=== PATIENT | female | born 1960 ===

== ENCOUNTER 2018-03-10 19:37 | Inpatient (IN) | payer MEDICAID ==
[2018-03-10 19:37] VITALS: BMI 28.3
[2018-03-10 20:32] LABS: BASO # 0.1 K/uL (0.0-0.2); BASO % 0.9 % (0.0-2.0); EOS # 0.5 K/uL (0.0-0.7); EOS % 4.4 % (0.0-4.0); HEMOGLOBIN 13.9 g/dL (12.0-16.0); LYMPH # 2.4 K/uL (1.0-4.3); LYMPH % 23.1 % (20.0-40.0); MEAN CELL VOLUME 87.4 fl (81.0-99.0); MEAN CORPUSCULAR HGB CONC 33.1 g/dL (33.0-37.0); MEAN PLATELET VOLUME 9.2 fl (7.2-11.7); MONO # 0.9 K/uL (0.0-0.8); MONO % 8.6 % (0.0-10.0); NEUT # 6.6 K/uL (1.8-7.0); RBC 4.82 Mil/uL (3.80-5.20); RED CELL DISTRIBUTION WIDTH 13.6 % (11.5-14.5); WHITE BLOOD COUNT 10.4 K/uL (4.8-10.8)
[2018-03-10 20:39] LABS: PROTHROMBIN TIME 12.5 Seconds (9.8-13.1)
[2018-03-10 20:40] LABS: INR 1.1 (0.9-1.2); PARTIAL THROMBOPLASTIN TIME 31.2 Seconds (25.6-37.1)
[2018-03-10 20:58] LABS: BARBITURATES, UR NEGATIVE (NEGATIVE); BENZODIAZEPINES, UR NEGATIVE (NEGATIVE); OPIATES, UR NEGATIVE (NEGATIVE); PHENCYCLIDINE, UR NEGATIVE (NEGATIVE)
[2018-03-10 21:09] LABS: SQUAMOUS EPITHIAL 2 /hpf (0-5); URINE BACTERIA MOD (<OCC); URINE BILIRUBIN NEGATIVE (NEGATIVE); URINE BLOOD SMALL (NEGATIVE); URINE CLARITY SLIGHTY-CLOUDY (Clear); URINE COLOR STRAW (YELLOW); URINE GLUCOSE (UA) NEG (Normal); URINE LEUKOCYTE ESTERASE NEG Leu/uL (Negative); URINE PROTEIN NEGATIVE (NEGATIVE); URINE UROBILINOGEN 0.2-1.0 mg/dL (0.2-1.0)
[2018-03-10 21:22] LABS: ALB/GLOB RATIO 1.1 (1.0-2.1); ALBUMIN 4.3 g/dL (3.5-5.0); ALT/SGPT 25 U/L (9-52); AST/SGOT 27 U/L (14-36); BLOOD UREA NITROGEN 13 mg/dl (7-17); CALCIUM 9.5 mg/dL (8.4-10.2); GFR AFRICAN-AMERICAN > 60; GFR NON-AFRICAN AMERICAN 57
[2018-03-10] MEDS ORDERED: Enoxaparin 80 mg Syringe SC STA (22:24)
--- NOTE | 2018-03-10 22:42 | ED PDOC ---
HPI: Chest Pain Time Seen by Provider: 03/10/18 19:47 Chief Complaint (Nursing): Chest Pain Chief Complaint (Provider): Chest Pain History Per: Patient History/Exam Limitations: no limitations Onset/Duration Of Symptoms: Hrs (1) Current Symptoms Are (Timing): Still Present Associated Symptoms: denies: Nausea, Diaphoresis Additional Complaint(s): 57 y/o female with a history of HTN presents to the ED for chest pain. Patient states symptoms began 1 hour prior to ED arrival. She is also complaining of palpitations, SOB, headache, and dizziness. Patient reports she has had episodes like this in the past but hasn't experienced them this long before. Denies any nausea, vomiting, or diaphoresis. PMD: none provided Past Medical History Reviewed: Historical Data, Nursing Documentation, Vital Signs Vital Signs: Last Vital Signs Temp 98 F 03/11/18 01:00 Pulse 124 H 03/11/18 02:47 Resp 16 03/11/18 01:00 BP 112/78 03/11/18 01:00 Pulse Ox 98 03/11/18 02:47 - Medical History PMH: HTN Denies: Chronic Kidney Disease - Surgical History Surgical History: Appendectomy - Family History Family History: States: No Known Family Hx - Social History Current smoker - smoking cessation education provided: No Ex-Smoker (has not smoked in the last 12 months): No Alcohol: None Drugs: Denies - Home Medications Home Medications: Ambulatory Orders Medication Instructions Recorded Lisinopril/Hydrochlorothiazide 1 tab PO DAILY 03/10/18 [Lisinopril-Hctz 20-25 mg Tab] - Allergies Allergies/Adverse Reactions: Allergies Allergy/AdvReac Type Severity Reaction Status Date / Time No Known Allergies Allergy Verified 12/11/15 12:17 Review of Systems ROS Statement: Except As Marked, All Systems Reviewed And Found Negative Constitutional: Negative for: Sweats Cardiovascular: Positive for: Chest Pain, Palpitations Respiratory: Positive for: Shortness of Breath Gastrointestinal: Negative for: Nausea, Vomiting Neurological: Positive for: Headache, Dizziness Physical Exam - Reviewed Nursing Documentation Reviewed: Yes Vital Signs Reviewed: Yes - Physical Exam Appears: Positive for: Non-toxic, No Acute Distress, Uncomfortable Head Exam: Positive for: ATRAUMATIC, NORMOCEPHALIC Skin: Positive for: Normal Color, Warm, Dry Eye Exam: Positive for: EOMI, Normal appearance, PERRL Neck: Positive for: Normal, Painless ROM, Supple Cardiovascular/Chest: Positive for: Tachycardia, Irregularly Irregular. Negative for: Regular Rate, Rhythm Respiratory: Positive for: Normal Breath Sounds. Negative for: Respiratory Distress Gastrointestinal/Abdominal: Positive for: Normal Exam, Soft. Negative for: Tenderness Back: Positive for: Normal Inspection Extremity: Positive for: Normal ROM Neurologic/Psych: Positive for: Alert, Oriented (x3) - Laboratory Results Result Diagrams: 03/10/18 20:26 03/10/18 21:02 - ECG ECG: Positive for: Interpreted By Me, Viewed By Me Interpretation Of ECG: EKG taken at 19:43; Rapid ventricular rate, RVR Rate: 124 O2 Sat by Pulse Oximetry: 98 (RA) Pulse Ox Interpretation: Normal - Critical Care Total Time (In Min): 30 Medical Decision Making Medical Decision Making: Time: 19:38 Impression: 57 y/o female with new onset atrial fibrillation with rapid ventricular response Initial Plan: * EKG x2 * CMP x2 * Drug Screen * TSH * Troponin I Stat x2 * CBC * PTT * Prothrombin Time * Chest X-Ray * IV Fluids * Cardizem 20 mg IVP once 20 mg IV push of Cardizem administered with successful control of HR. Patient remains in A Fib with controlled Rate (80bpm). Patient reports symptoms have resolved. Chest X-ray shows NAD Labs reviewed show no clinically significant abnormalities. Patient will be admitted for new onset of atrial fibrillation with rapid ventricular response. Case d/w Dr. Leong (medicine staff sonographer) for admission Scribe Attestation: Documented by Sandy Lux acting as a scribe Jacob Alaniz MD. MD Whelan Attestation: All medical record entries made by the Scribe were at my direction and personally dictated by me. I have reviewed the chart and agree that the record accurately reflects my personal performance of the history, physical exam, medical decision making, and the department course for this patient. I have also personally directed, reviewed, and agree with the discharge instructions and disposition. Disposition - Clinical Impression Clinical Impression: Atrial fibrillation with rapid ventricular response - Disposition Disposition Time: 21:30 Condition: FAIR
--- NOTE | 2018-03-11 05:09 | CP.PCM.PCO ---
Physician Communication Note - Physician Communication Note Physician Communication Note: held cardizem drip as patient converted to NSR and is asymptomatic
[2018-03-11] MEDS ORDERED: Pneumococcal 23-Valent Vaccine IM ONE (06:16)
[2018-03-11 06:29] LABS: HEMOGLOBIN 13.7 g/dL (12.0-16.0); MEAN CELL VOLUME 86.8 fl (81.0-99.0); MEAN CORPUSCULAR HEMOGLOBIN 29.3 pg (27.0-31.0); MEAN CORPUSCULAR HGB CONC 33.7 g/dL (33.0-37.0); RBC 4.67 Mil/uL (3.80-5.20); RED CELL DISTRIBUTION WIDTH 13.9 % (11.5-14.5); WHITE BLOOD COUNT 8.5 K/uL (4.8-10.8)
--- NOTE | 2018-03-11 07:35 | CP.PCM.HP ---
History of Present Illness - History of Present Illness History of Present Illness: CC: chest pain HPI: 57 y/o woman w/ pmh of HTN presented to the ED w/ chest pain. Patient states symptoms began 1 hour prior to ED arrival. Patient also complaining of associated palpitations, SOB, headache, and dizziness. Patient reports similar episodes in the past but hasn't experienced them this long before. Patient denies abdominal pain, nausea, vomiting, fever, or diaphoresis. PMD: none provided PMH: HTN meds: see med list allergies: NKDA PSH: appendectomy Fam: denies SOC: denies smoking, alcohol, and drugs ROS: 12 points assessed and negative unless otherwise reported in HPI Present on Admission - Present on Admission Any Indicators Present on Admission: No History of DVT/PE: No History of Uncontrolled Diabetes: No Urinary Catheter: No Decubitus Ulcer Present: No Review of Systems - Review of Systems All systems: reviewed and no additional remarkable complaints except - Constitutional Constitutional: absent: Chills, Fever, Headache - EENT Eyes: absent: Change in Vision - Cardiovascular Cardiovascular: As Per HPI, Chest Pain, Lightheadedness, Palpitations - Respiratory Respiratory: As Per HPI, Dyspnea - Gastrointestinal Gastrointestinal: absent: Abdominal Pain, Diarrhea, Nausea, Vomiting - Genitourinary Genitourinary: absent: Dysuria - Integumentary Integumentary: absent: Rash Past Patient History - Past Medical History & Family History Past Medical History?: Yes - Past Social History Alcohol: None Drugs: Denies - CARDIAC Hx Hypertension: Yes - PULMONARY Hx Respiratory Disorders: No - NEUROLOGICAL Hx Neurological Disorder: Yes Hx Vertigo: Yes - HEENT Hx HEENT Problems: No - RENAL Hx Chronic Kidney Disease: No - ENDOCRINE/METABOLIC Hx Endocrine Disorders: No - HEMATOLOGICAL/ONCOLOGICAL Hx Blood Disorders: No - INTEGUMENTARY Hx Dermatological Problems: No - MUSCULOSKELETAL/RHEUMATOLOGICAL Hx Musculoskeletal Disorders: No Hx Falls: No - GASTROINTESTINAL Hx Gastrointestinal Disorders: No - GENITOURINARY/GYNECOLOGICAL Hx Genitourinary Disorders: No - PSYCHIATRIC Hx Psychophysiologic Disorder: No Hx Substance Use: No - SURGICAL HISTORY Hx Appendectomy: Yes - ANESTHESIA Hx Anesthesia: Yes Hx Anesthesia Reactions: No Hx Malignant Hyperthermia: No Has any member of the family had a problem w/ anesthesia?: No Meds Allergies/Adverse Reactions: Allergies Allergy/AdvReac Type Severity Reaction Status Date / Time No Known Allergies Allergy Verified 12/11/15 12:17 Physical Exam - Constitutional Appears: Non-toxic, No Acute Distress - Head Exam Head Exam: ATRAUMATIC, NORMAL INSPECTION, NORMOCEPHALIC - Eye Exam Eye Exam: Normal appearance - ENT Exam ENT Exam: Mucous Membranes Moist - Neck Exam Neck exam: Positive for: Full Rom. Negative for: Tenderness - Respiratory Exam Respiratory Exam: Clear to Auscultation Bilateral. absent: Accessory Muscle Use , Decreased Breath Sounds, Rales, Rhonchi, Wheezes, Respiratory Distress - Cardiovascular Exam Cardiovascular Exam: REGULAR RHYTHM, RRR. absent: Tachycardia - GI/Abdominal Exam GI & Abdominal Exam: Normal Bowel Sounds, Soft. absent: Distended, Tenderness - Extremities Exam Extremities exam: Positive for: normal inspection. Negative for: calf tenderness - Neurological Exam Neurological exam: Alert, CN II-XII Intact, Oriented x3 - Skin Skin Exam: Dry, Intact, Normal Color, Warm Results - Vital Signs Recent Vital Signs: Last Vital Signs Temp 97.8 F 03/11/18 04:51 Pulse 66 03/11/18 04:51 Resp 16 03/11/18 04:51 BP 107/71 03/11/18 04:51 Pulse Ox 99 03/11/18 04:51 - Labs Result Diagrams: 03/11/18 05:40 03/10/18 21:02 Labs: Laboratory Results - last 24 hr 03/10/18 03/10/18 03/10/18 20:26 20:26 20:26 WBC 10.4 RBC 4.82 Hgb 13.9 Hct 42.1 MCV 87.4 MCH 29.0 MCHC 33.1 RDW 13.6 Plt Count 237 MPV 9.2 Neut % (Auto) 63.0 Lymph % (Auto) 23.1 [place] % (Auto) 8.6 Eos % (Auto) 4.4 H Baso % (Auto) 0.9 Neut # (Auto) 6.6 Lymph # (Auto) 2.4 [place] # (Auto) 0.9 H Eos # (Auto) 0.5 Baso # (Auto) 0.1 PT 12.5 INR 1.1 APTT 31.2 Sodium Potassium Chloride Carbon Dioxide Anion Gap BUN Creatinine Est GFR ( Amer) Est GFR (Non-Af Amer) Random Glucose Calcium Total Bilirubin AST ALT Alkaline Phosphatase Troponin I Total Protein Albumin Globulin Albumin/Globulin Ratio Vitamin B12 TSH 3rd Generation Urine Color Urine Clarity Urine pH Ur Specific [place] Urine Protein Urine Glucose (UA) Urine Ketones Urine Blood Urine Nitrate Urine Bilirubin Urine Urobilinogen Ur Leukocyte Esterase Urine RBC (Auto) Urine Microscopic WBC Ur Squamous Epith Cells Urine Bacteria Urine Opiates Screen Negative Urine Methadone Screen Negative Ur Barbiturates Screen Negative Ur Phencyclidine Scrn Negative Ur Amphetamines Screen Negative U Benzodiazepines Scrn Negative U Oth Cocaine Metabols Negative U Cannabinoids Screen Negative 03/10/18 03/10/18 03/10/18 21:02 21:02 22:00 WBC RBC Hgb Hct MCV MCH MCHC RDW Plt Count MPV Neut % (Auto) Lymph % (Auto) [place] % (Auto) Eos % (Auto) Baso % (Auto) Neut # (Auto) Lymph # (Auto) [place] # (Auto) Eos # (Auto) Baso # (Auto) PT INR APTT Sodium 141 Potassium 3.7 Chloride 102 Carbon Dioxide 28 Anion Gap 15 BUN 13 Creatinine 1.0 Est GFR ( Amer) > 60 Est GFR (Non-Af Amer) 57 Random Glucose 118 H Calcium 9.5 Total Bilirubin 0.3 AST 27 ALT 25 Alkaline Phosphatase 112 Troponin I < 0.0120 Total Protein 8.2 Albumin 4.3 Globulin 3.9 Albumin/Globulin Ratio 1.1 Vitamin B12 TSH 3rd Generation 3.26 Urine Color Straw Urine Clarity Slighty-cloudy Urine pH 7.0 Ur Specific [place] 1.005 Urine Protein Negative Urine Glucose (UA) Neg Urine Ketones Negative Urine Blood Small Urine Nitrate Negative Urine Bilirubin Negative Urine Urobilinogen 0.2-1.0 Ur Leukocyte Esterase Neg Urine RBC (Auto) 5 H Urine Microscopic WBC < 1 Ur Squamous Epith Cells 2 Urine Bacteria Mod H Urine Opiates Screen Urine Methadone Screen Ur Barbiturates Screen Ur Phencyclidine Scrn Ur Amphetamines Screen U Benzodiazepines Scrn U Oth Cocaine Metabols U Cannabinoids Screen 03/11/18 03/11/18 05:40 05:40 WBC 8.5 RBC 4.67 Hgb 13.7 Hct 40.6 MCV 86.8 MCH 29.3 MCHC 33.7 RDW 13.9 Plt Count 241 MPV Neut % (Auto) Lymph % (Auto) [place] % (Auto) Eos % (Auto) Baso % (Auto) Neut # (Auto) Lymph # (Auto) [place] # (Auto) Eos # (Auto) Baso # (Auto) PT INR APTT Sodium Potassium Chloride Carbon Dioxide Anion Gap BUN Creatinine Est GFR ( Amer) Est GFR (Non-Af Amer) Random Glucose Calcium Total Bilirubin AST ALT Alkaline Phosphatase Troponin I < 0.0120 Total Protein Albumin Globulin Albumin/Globulin Ratio Vitamin B12 668 TSH 3rd Generation Urine Color Urine Clarity Urine pH Ur Specific [place] Urine Protein Urine Glucose (UA) Urine Ketones Urine Blood Urine Nitrate Urine Bilirubin Urine Urobilinogen Ur Leukocyte Esterase Urine RBC (Auto) Urine Microscopic WBC Ur Squamous Epith Cells Urine Bacteria Urine Opiates Screen Urine Methadone Screen Ur Barbiturates Screen Ur Phencyclidine Scrn Ur Amphetamines Screen U Benzodiazepines Scrn U Oth Cocaine Metabols U Cannabinoids Screen Assessment & Plan (1) Atrial fibrillation with rapid ventricular response Status: Acute (2) HTN (hypertension) Status: Chronic - Assessment and Plan (Free Text) Plan: afebrile, non-tachycardic, normotensive cardiology consult ordered troponin x2 negative converted to sinus rhythm EKG: atrial fibrillation f/u CMP, TSH, T3, T4, lipid panel, vit B12, troponin prophylactic measures: DVT lovenox 70 mg SC Q12h monitor for acute changes
[2018-03-11 07:43] LABS: ALB/GLOB RATIO 1.1 (1.0-2.1); ALBUMIN 3.9 g/dL (3.5-5.0); ALT/SGPT 29 U/L (9-52); AST/SGOT 28 U/L (14-36); BLOOD UREA NITROGEN 14 mg/dl (7-17); CALCIUM 9.2 mg/dL (8.4-10.2); GFR AFRICAN-AMERICAN > 60; GFR NON-AFRICAN AMERICAN 51; HDL CHOLESTEROL 56 MG/DL (30-70); LDL CHOLESTEROL 64 mg/dL (0-129); T3 1.24 nmol/L (1.49-2.60); T4 10.3 ug/dl (5.5-11.0)
[2018-03-11] MEDS: Enoxaparin 80 mg Syringe SC SCH ×2 (08:15→22:13)
[2018-03-11] MEDS ORDERED: Patient's Own Med (Lisinopril/Hydrochlorothiazide [Lisinopril-Hctz 20-25 Mg Tab] 1 TAB) PO SCH (09:00)
[2018-03-11] MEDS ORDERED: Enoxaparin 60 mg Syringe SC SCH (09:00)
--- NOTE | 2018-03-11 09:39 | RAD ---
HISTORY: chest pain COMPARISON: 12/11/2015 FINDINGS: LUNGS: No active pulmonary disease. PLEURA: No significant pleural effusion identified, no pneumothorax apparent. CARDIOVASCULAR: Top-normal heart size OSSEOUS STRUCTURES: No significant abnormalities. VISUALIZED UPPER ABDOMEN: Right upper quadrant pole post cholecystectomy clips inferred OTHER FINDINGS: None. IMPRESSION: No active disease.
--- NOTE | 2018-03-11 11:21 | CP.PCM.CON ---
History of Present Illness - History of Present Illness History of Present Illness: Consultation for afib HPI:57 yo F with PMH of HTN who presented to the ED last night with c/ o chest discomfort and palpitations. EKG in the ED revealed new onset AFib at 124. She was subsequently given 1x Cardizem 20mg IVP, resulting in rate control at 80. Troponins were negative. ECHO revealed normal LV wall thickness, EF of 55 %. Today, she has remained rate controlled in the 80s. Patient was hypotensive in 90s/60s. Currently, she denies any chest pain, palpitations, SOB, n/v, diaphoresis. She denies any similar episodes in the past, or ever being worked up for arrhythmia. No other complaints are noted at this time. Review of Systems - Constitutional Constitutional: As Per HPI - EENT Eyes: As Per HPI - Cardiovascular Cardiovascular: Dyspnea. absent: Chest Pain, Chest Pain at Rest, Chest Pain with Activity, Diaphoresis, Palpitations, Syncope - Respiratory Respiratory: absent: Cough, Dyspnea, Wheezing - Neurological Neurological: Headaches Past Patient History - Past Medical History & Family History Past Medical History?: Yes - Past Social History Alcohol: None Drugs: Denies - CARDIAC Hx Hypertension: Yes - PULMONARY Hx Respiratory Disorders: No - NEUROLOGICAL Hx Neurological Disorder: Yes Hx Vertigo: Yes - HEENT Hx HEENT Problems: No - RENAL Hx Chronic Kidney Disease: No - ENDOCRINE/METABOLIC Hx Endocrine Disorders: No - HEMATOLOGICAL/ONCOLOGICAL Hx Blood Disorders: No - INTEGUMENTARY Hx Dermatological Problems: No - MUSCULOSKELETAL/RHEUMATOLOGICAL Hx Musculoskeletal Disorders: No Hx Falls: No - GASTROINTESTINAL Hx Gastrointestinal Disorders: No - GENITOURINARY/GYNECOLOGICAL Hx Genitourinary Disorders: No - PSYCHIATRIC Hx Psychophysiologic Disorder: No Hx Substance Use: No - SURGICAL HISTORY Hx Appendectomy: Yes - ANESTHESIA Hx Anesthesia: Yes Hx Anesthesia Reactions: No Hx Malignant Hyperthermia: No Has any member of the family had a problem w/ anesthesia?: No Meds Allergies/Adverse Reactions: Allergies Allergy/AdvReac Type Severity Reaction Status Date / Time No Known Allergies Allergy Verified 12/11/15 12:17 - Medications Medications: Current Medications Diltiazem HCl (Cardizem) 30 mg PO DAILY [facility] Enoxaparin Sodium (Lovenox) 70 mg SC Q12 ADELINE PRN Reason: Protocol Last Admin: 03/11/18 08:15 Dose: 70 mg Hydrochlorothiazide (Hydrodiuril) 25 mg PO DAILY [facility] Last Admin: 03/11/18 08:16 Dose: Not Given Diltiazem HCl 125 mg/ Sodium (Chloride) 125 mls @ 5 mls/hr IV .Q24H ONE; 5 MG/ HR PRN Reason: Protocol Stop: 03/11/18 19:59 Last Admin: 03/10/18 21:28 Dose: 5 mls/hr Lisinopril (Zestril) 20 mg PO DAILY [facility] Last Admin: 03/11/18 08:16 Dose: Not Given Physical Exam - Constitutional Appears: Well, Non-toxic, No Acute Distress - Head Exam Head Exam: ATRAUMATIC, NORMOCEPHALIC - Respiratory Exam Respiratory Exam: Clear to Auscultation Bilateral, NORMAL BREATHING PATTERN. absent: Chest Wall Tenderness, Decreased Breath Sounds, Wheezes, Respiratory Distress - Cardiovascular Exam Cardiovascular Exam: REGULAR RHYTHM, +S1, +S2 Results - Vital Signs Recent Vital Signs: Last Vital Signs Temp 97.8 F 03/11/18 07:57 Pulse 64 03/11/18 08:16 Resp 18 03/11/18 07:57 BP 93/60 L 03/11/18 08:16 Pulse Ox 98 03/11/18 07:57 - Labs Result Diagrams: 03/11/18 05:40 03/11/18 05:40 Labs: Laboratory Results - last 24 hr 03/10/18 03/10/18 03/10/18 20:26 20:26 20:26 WBC 10.4 RBC 4.82 Hgb 13.9 Hct 42.1 MCV 87.4 MCH 29.0 MCHC 33.1 RDW 13.6 Plt Count 237 MPV 9.2 Neut % (Auto) 63.0 Lymph % (Auto) 23.1 [place] % (Auto) 8.6 Eos % (Auto) 4.4 H Baso % (Auto) 0.9 Neut # (Auto) 6.6 Lymph # (Auto) 2.4 [place] # (Auto) 0.9 H Eos # (Auto) 0.5 Baso # (Auto) 0.1 PT 12.5 INR 1.1 APTT 31.2 Sodium Potassium Chloride Carbon Dioxide Anion Gap BUN Creatinine Est GFR ( Amer) Est GFR (Non-Af Amer) Random Glucose Calcium Total Bilirubin AST ALT Alkaline Phosphatase Troponin I Total Protein Albumin Globulin Albumin/Globulin Ratio Triglycerides Cholesterol LDL Cholesterol Direct HDL Cholesterol Vitamin B12 Thyroxine (T4) Total T3 TSH 3rd Generation Urine Color Urine Clarity Urine pH Ur Specific [place] Urine Protein Urine Glucose (UA) Urine Ketones Urine Blood Urine Nitrate Urine Bilirubin Urine Urobilinogen Ur Leukocyte Esterase Urine RBC (Auto) Urine Microscopic WBC Ur Squamous Epith Cells Urine Bacteria Urine Opiates Screen Negative Urine Methadone Screen Negative Ur Barbiturates Screen Negative Ur Phencyclidine Scrn Negative Ur Amphetamines Screen Negative U Benzodiazepines Scrn Negative U Oth Cocaine Metabols Negative U Cannabinoids Screen Negative 03/10/18 03/10/18 03/10/18 21:02 21:02 22:00 WBC RBC Hgb Hct MCV MCH MCHC RDW Plt Count MPV Neut % (Auto) Lymph % (Auto) [place] % (Auto) Eos % (Auto) Baso % (Auto) Neut # (Auto) Lymph # (Auto) [place] # (Auto) Eos # (Auto) Baso # (Auto) PT INR APTT Sodium 141 Potassium 3.7 Chloride 102 Carbon Dioxide 28 Anion Gap 15 BUN 13 Creatinine 1.0 Est GFR ( Amer) > 60 Est GFR (Non-Af Amer) 57 Random Glucose 118 H Calcium 9.5 Total Bilirubin 0.3 AST 27 ALT 25 Alkaline Phosphatase 112 Troponin I < 0.0120 Total Protein 8.2 Albumin 4.3 Globulin 3.9 Albumin/Globulin Ratio 1.1 Triglycerides Cholesterol LDL Cholesterol Direct HDL Cholesterol Vitamin B12 Thyroxine (T4) Total T3 TSH 3rd Generation 3.26 Urine Color Straw Urine Clarity Slighty-cloudy Urine pH 7.0 Ur Specific [place] 1.005 Urine Protein Negative Urine Glucose (UA) Neg Urine Ketones Negative Urine Blood Small Urine Nitrate Negative Urine Bilirubin Negative Urine Urobilinogen 0.2-1.0 Ur Leukocyte Esterase Neg Urine RBC (Auto) 5 H Urine Microscopic WBC < 1 Ur Squamous Epith Cells 2 Urine Bacteria Mod H Urine Opiates Screen Urine Methadone Screen Ur Barbiturates Screen Ur Phencyclidine Scrn Ur Amphetamines Screen U Benzodiazepines Scrn U Oth Cocaine Metabols U Cannabinoids Screen 03/11/18 03/11/18 05:40 05:40 WBC 8.5 RBC 4.67 Hgb 13.7 Hct 40.6 MCV 86.8 MCH 29.3 MCHC 33.7 RDW 13.9 Plt Count 241 MPV Neut % (Auto) Lymph % (Auto) [place] % (Auto) Eos % (Auto) Baso % (Auto) Neut # (Auto) Lymph # (Auto) [place] # (Auto) Eos # (Auto) Baso # (Auto) PT INR APTT Sodium 140 Potassium 4.2 Chloride 103 Carbon Dioxide 28 Anion Gap 13 BUN 14 Creatinine 1.1 Est GFR ( Amer) > 60 Est GFR (Non-Af Amer) 51 Random Glucose 139 H Calcium 9.2 Total Bilirubin 0.6 AST 28 ALT 29 Alkaline Phosphatase 121 Troponin I < 0.0120 Total Protein 7.6 Albumin 3.9 Globulin 3.7 Albumin/Globulin Ratio 1.1 Triglycerides 117 D Cholesterol 158 LDL Cholesterol Direct 64 HDL Cholesterol 56 Vitamin B12 668 Thyroxine (T4) 10.3 Total T3 1.24 L TSH 3rd Generation 2.68 Urine Color Urine Clarity Urine pH Ur Specific [place] Urine Protein Urine Glucose (UA) Urine Ketones Urine Blood Urine Nitrate Urine Bilirubin Urine Urobilinogen Ur Leukocyte Esterase Urine RBC (Auto) Urine Microscopic WBC Ur Squamous Epith Cells Urine Bacteria Urine Opiates Screen Urine Methadone Screen Ur Barbiturates Screen Ur Phencyclidine Scrn Ur Amphetamines Screen U Benzodiazepines Scrn U Oth Cocaine Metabols U Cannabinoids Screen Assessment & Plan (1) Atrial fibrillation with rapid ventricular response Status: Acute Comment: 1. Pharmacologic stress test. 2. D-dimer. 3. ABG (2) HTN (hypertension) Status: Chronic (3) Cough Status: Acute
--- NOTE | 2018-03-11 14:15 | CARD ---
APPROVED REPORT EXAM: Two-dimensional and M-mode echocardiogram with Doppler and color Doppler. Other Information Quality : GoodRhythm : NSR INDICATION Dyspnea Atrial Fibrillation 2D DIMENSIONS IVSd0.97 (0.7-1.1cm)LVDd4.21 (3.9-5.9cm) LVOT Diameter1.97 (1.8-2.4cm)PWd0.93 (0.7-1.1cm) IVSs1.24 (0.8-1.2cm)LVDs3.06 (2.5-4.0cm) FS (%) 27.3 %PWs1.21 (0.8-1.2cm) LVEF (%)55.0 (>50%) M-Mode DIMENSIONS Left Atrium (MM)4.33 (2.5-4.0cm)IVSd0.85 (0.7-1.1cm) Aortic Root3.01 (2.2-3.7cm)LVDd5.63 (4.0-5.6cm) Aortic Cusp Exc.1.99 (1.5-2.0cm)PWd0.94 (0.7-1.1cm) IVSs1.13 cmFS (%) 29 % LVDs3.97 (2.0-3.8cm)PWs1.57 cm Mitral Valve MV E Hqprhihr59.5cm/sMV DECEL [id number] A Eztpanwm94.9cm/s MV [id number]/A ratio1.0MVA (PHT)2.18cm2 TDI Lateral E' Peak V8.80cm/sMedial E' Peak V6.27cm/sE/Lateral E'5.1 E/Medial E'7.1 Pulmonary Valve PV Peak Recsokdw25.3cm/s Tricuspid Valve TR Peak [id number]/sRAP [id number] Peak Gr.12mmHg [id number] LEFT VENTRICLE The left ventricle is normal size. There is normal left ventricular wall thickness. The left ventricular ejection fraction is within the normal range. Hypokinetic basal septum Transmitral Doppler flow pattern is Grade I-abnormal relaxation pattern. RIGHT VENTRICLE The right ventricle is normal size. There is normal right ventricular wall thickness. The right ventricular systolic function is normal. ATRIA The left atrium is borderline dilated. The right atrium size is normal. AORTIC VALVE The aortic valve is normal in structure. No aortic regurgitation is present. There is no aortic valvular stenosis. MITRAL VALVE The mitral valve is normal in structure. There is no mitral valve stenosis. There is no mitral valve regurgitation noted. TRICUSPID VALVE The tricuspid valve is normal in structure. There is trace tricuspid regurgitation. PULMONIC VALVE The pulmonary valve is normal in structure. There is no pulmonic valvular regurgitation. GREAT VESSELS The aortic root is normal in size. The IVC was not visualized. PERICARDIAL EFFUSION The pericardium appears normal. <Conclusion> The left ventricle is normal size. There is normal left ventricular wall thickness. The left ventricular ejection fraction is within the normal range. Hypokinetic basal septum Transmitral Doppler flow pattern is Grade I-abnormal relaxation pattern.
--- NOTE | 2018-03-11 16:22 | CARD ---
APPROVED REPORT EKG Measurement Heart [id number] <Conclusion> Atrial fibrillation Abnormal ECG
--- NOTE | 2018-03-11 16:22 | CARD ---
APPROVED REPORT EKG Measurement Heart [id number] <Conclusion> Atrial fibrillation with rapid ventricular response Septal infarct, age undetermined Abnormal ECG
--- NOTE | 2018-03-12 08:45 | CP.PCM.PN ---
Subjective - Date & Time of Evaluation Date of Evaluation: 03/12/18 Time of Evaluation: 07:40 - Subjective Subjective: The patient was seen and examined this morning at bedside w/ Dr. Leong. There are no acute events overnight, NAD. The patient reports feeling better and denies chest pain or palpitations. The patient denies headaches, SOB, abdominal pain, nausea, vomiting, diarrhea, dysuria, or fever. Objective - Vital Signs/Intake and Output Vital Signs (last 24 hours): Temp Pulse Resp BP Pulse Ox 98.5 F 86 18 150/76 96 03/12/18 08:13 03/12/18 08:13 03/12/18 08:13 03/12/18 08:13 03/12/18 08:13 - Medications Medications: Current Medications Diltiazem HCl (Cardizem) 30 mg PO Q8 [facility] Last Admin: 03/12/18 01:35 Dose: Not Given Enoxaparin Sodium (Lovenox) 70 mg SC Q12 [facility] PRN Reason: Protocol Last Admin: 03/11/18 22:13 Dose: 70 mg Hydrochlorothiazide (Hydrodiuril) 25 mg PO DAILY [facility] Last Admin: 03/11/18 08:16 Dose: Not Given Ibuprofen (Motrin Tab) 400 mg PO Q4 PRN PRN Reason: Headache Last Admin: 03/11/18 16:51 Dose: 400 mg Lisinopril (Zestril) 20 mg PO DAILY [facility] Last Admin: 03/11/18 08:16 Dose: Not Given - Labs Labs: 03/11/18 05:40 03/11/18 05:40 PT 12.5 Seconds (9.8-13.1) 03/10/18 20:26 INR 1.1 (0.9-1.2) 03/10/18 20:26 APTT 31.2 Seconds (25.6-37.1) 03/10/18 20:26 - Constitutional Appears: Non-toxic, No Acute Distress - Head Exam Head Exam: ATRAUMATIC, NORMAL INSPECTION, NORMOCEPHALIC - Eye Exam Eye Exam: Normal appearance - ENT Exam ENT Exam: Mucous Membranes Moist - Neck Exam Neck Exam: Full ROM. absent: Tenderness - Respiratory Exam Respiratory Exam: absent: Accessory Muscle Use, Decreased Breath Sounds, Rales, Rhonchi, Wheezes, Respiratory Distress - Cardiovascular Exam Cardiovascular Exam: REGULAR RHYTHM, RRR. absent: Tachycardia - GI/Abdominal Exam GI & Abdominal Exam: Soft, Normal Bowel Sounds. absent: Distended, Tenderness - Extremities Exam Extremities Exam: Normal Inspection. absent: Calf Tenderness - Neurological Exam Neurological Exam: Alert, Awake, Oriented x3 - Skin Skin Exam: Dry, Intact, Normal Color, Warm Assessment and Plan (1) Atrial fibrillation with rapid ventricular response Status: Acute (2) HTN (hypertension) Status: Chronic - Assessment and Plan (Free Text) Plan: c/w present management afebrile, non-tachycardic, normotensive cardiology recommendations appreciated troponin x3 negative converted to sinus rhythm EKG: atrial fibrillation f/u stress test prophylactic measures: DVT lovenox 70 mg SC Q12h (due to afib) monitor for acute changes
[2018-03-12] MEDS: Enoxaparin 80 mg Syringe SC SCH ×2 (09:04→21:43)
--- NOTE | 2018-03-12 09:53 | CP.PCM.PN ---
Subjective - Date & Time of Evaluation Date of Evaluation: 03/12/18 Time of Evaluation: 09:53 - Subjective Subjective: feeling fine in NSR Objective - Vital Signs/Intake and Output Vital Signs (last 24 hours): Temp Pulse Resp BP Pulse Ox 98.5 F 86 18 150/76 96 03/12/18 08:13 03/12/18 09:04 03/12/18 08:13 03/12/18 09:04 03/12/18 08:13 - Medications Medications: Current Medications Diltiazem HCl (Cardizem) 30 mg PO Q8 [facility] Last Admin: 03/12/18 09:03 Dose: 30 mg Enoxaparin Sodium (Lovenox) 70 mg SC Q12 [facility] PRN Reason: Protocol Last Admin: 03/12/18 09:04 Dose: 70 mg Hydrochlorothiazide (Hydrodiuril) 25 mg PO DAILY [facility] Last Admin: 03/12/18 09:04 Dose: 25 mg Ibuprofen (Motrin Tab) 400 mg PO Q4 PRN PRN Reason: Headache Last Admin: 03/11/18 16:51 Dose: 400 mg Lisinopril (Zestril) 20 mg PO DAILY [facility] Last Admin: 03/12/18 09:04 Dose: 20 mg - Labs Labs: 03/11/18 05:40 03/11/18 05:40 PT 12.5 Seconds (9.8-13.1) 03/10/18 20:26 INR 1.1 (0.9-1.2) 03/10/18 20:26 APTT 31.2 Seconds (25.6-37.1) 03/10/18 20:26 - Constitutional Appears: Well - Head Exam Head Exam: ATRAUMATIC, NORMAL INSPECTION, NORMOCEPHALIC - Eye Exam Eye Exam: EOMI, Normal appearance, PERRL Pupil Exam: NORMAL ACCOMODATION, PERRL - ENT Exam ENT Exam: Mucous Membranes Moist, Normal Exam - Neck Exam Neck Exam: Full ROM, Normal Inspection. absent: Lymphadenopathy - Respiratory Exam Respiratory Exam: Clear to Ausculation Bilateral, NORMAL BREATHING PATTERN - Cardiovascular Exam Cardiovascular Exam: REGULAR RHYTHM, +S1, +S2. absent: Murmur - GI/Abdominal Exam GI & Abdominal Exam: Soft, Normal Bowel Sounds. absent: Tenderness - Extremities Exam Extremities Exam: Full ROM, Normal Capillary Refill, Normal Inspection. absent : Joint Swelling, Pedal Edema - Back Exam Back Exam: NORMAL INSPECTION - Neurological Exam Neurological Exam: Alert, Awake, CN II-XII Intact, Normal Gait, Oriented x3 - Psychiatric Exam Psychiatric exam: Normal Affect, Normal Mood - Skin Skin Exam: Dry, Intact, Normal Color, Warm Assessment and Plan (1) Atrial fibrillation with rapid ventricular response Assessment & Plan: converted to NSR initiate on AC due to high risk of stroke will need ischemic evaluation for ruling out CAD as trigger for atrial fibrillation Status: Acute (2) HTN (hypertension) Assessment & Plan: cont cardizem - change to once daily dosing cont acei and hctz Status: Chronic (3) Cough Status: Acute
[2018-03-13] MEDS: Enoxaparin 80 mg Syringe SC SCH (11:02)
[2018-03-13] MEDS ORDERED: Metoprolol Succinate 25 mg XL Tab PO SCH (11:15)
--- NOTE | 2018-03-13 14:40 | CP.PCM.PN ---
Subjective - Date & Time of Evaluation Date of Evaluation: 03/13/18 Time of Evaluation: 09:00 - Subjective Subjective: The patient was seen and examined this morning at bedside w/ Dr. Leong. There are no acute events overnight, NAD. The patient reports feeling better and denies chest pain or palpitations. The patient denies headaches, SOB, abdominal pain, nausea, vomiting, diarrhea, dysuria, or fever. Objective - Vital Signs/Intake and Output Vital Signs (last 24 hours): Temp Pulse Resp BP Pulse Ox 97.9 F 67 20 111/72 99 03/13/18 12:32 03/13/18 12:59 03/13/18 12:32 03/13/18 12:59 03/13/18 12:32 - Medications Medications: Current Medications Hydrochlorothiazide (Hydrodiuril) 25 mg PO DAILY [facility] Last Admin: 03/13/18 11:02 Dose: 25 mg Ibuprofen (Motrin Tab) 400 mg PO Q4 PRN PRN Reason: Headache Last Admin: 03/11/18 16:51 Dose: 400 mg Lisinopril (Zestril) 20 mg PO DAILY [facility] Last Admin: 03/13/18 11:03 Dose: 20 mg Metoprolol Succinate (Toprol Xl) 25 mg PO DAILY [facility] Last Admin: 03/13/18 12:59 Dose: 25 mg Rivaroxaban (Xarelto) 20 mg PO QD5 [facility] PRN Reason: Protocol - Labs Labs: 03/11/18 05:40 03/11/18 05:40 PT 12.5 Seconds (9.8-13.1) 03/10/18 20:26 INR 1.1 (0.9-1.2) 03/10/18 20:26 APTT 31.2 Seconds (25.6-37.1) 03/10/18 20:26 - Constitutional Appears: Non-toxic, No Acute Distress - Head Exam Head Exam: ATRAUMATIC, NORMAL INSPECTION, NORMOCEPHALIC - Eye Exam Eye Exam: Normal appearance - ENT Exam ENT Exam: Mucous Membranes Moist - Neck Exam Neck Exam: Full ROM. absent: Tenderness - Respiratory Exam Respiratory Exam: Clear to Ausculation Bilateral. absent: Accessory Muscle Use , Decreased Breath Sounds, Rales, Rhonchi, Wheezes, Respiratory Distress - Cardiovascular Exam Cardiovascular Exam: REGULAR RHYTHM. absent: Tachycardia, Murmur - GI/Abdominal Exam GI & Abdominal Exam: Soft, Normal Bowel Sounds. absent: Distended, Tenderness - Extremities Exam Extremities Exam: Normal Inspection. absent: Calf Tenderness - Neurological Exam Neurological Exam: Alert, Awake, Normal Gait, Oriented x3 - Skin Skin Exam: Dry, Intact, Normal Color, Warm Assessment and Plan (1) Atrial fibrillation with rapid ventricular response Status: Acute (2) HTN (hypertension) Status: Chronic - Assessment and Plan (Free Text) Plan: c/w present management afebrile, non-tachycardic, normotensive cardiology recommendations appreciated troponin x3 negative converted to sinus rhythm EKG: atrial fibrillation f/u stress test prophylactic measures: DVT xarelto 20 mg PO daily (for afib) monitor for acute changes
[2018-03-13 16:28] VITALS: BP 110/81; PULSE 76; RESP 17; TEMP 98.2; O2SAT 94
--- NOTE | 2018-03-13 17:50 | CP.PCM.PN ---
Subjective - Date & Time of Evaluation Date of Evaluation: 03/13/18 Time of Evaluation: 22:00 - Subjective Subjective: s/p stress test - no evidence of ischemia Objective - Vital Signs/Intake and Output Vital Signs (last 24 hours): Temp Pulse Resp BP Pulse Ox 98.2 F 76 17 110/81 94 L 03/13/18 16:28 03/13/18 16:28 03/13/18 16:28 03/13/18 16:28 03/13/18 16:28 - Medications Medications: Current Medications Hydrochlorothiazide (Hydrodiuril) 25 mg PO DAILY [facility] Last Admin: 03/13/18 11:02 Dose: 25 mg Ibuprofen (Motrin Tab) 400 mg PO Q4 PRN PRN Reason: Headache Last Admin: 03/11/18 16:51 Dose: 400 mg Lisinopril (Zestril) 20 mg PO DAILY [facility] Last Admin: 03/13/18 11:03 Dose: 20 mg Metoprolol Succinate (Toprol Xl) 25 mg PO DAILY [facility] Last Admin: 03/13/18 12:59 Dose: 25 mg Rivaroxaban (Xarelto) 20 mg PO QD5 [facility] PRN Reason: Protocol Last Admin: 03/13/18 16:57 Dose: 20 mg - Labs Labs: 03/11/18 05:40 03/11/18 05:40 PT 12.5 Seconds (9.8-13.1) 03/10/18 20:26 INR 1.1 (0.9-1.2) 03/10/18 20:26 APTT 31.2 Seconds (25.6-37.1) 03/10/18 20:26 - Constitutional Appears: Well - Head Exam Head Exam: ATRAUMATIC, NORMAL INSPECTION, NORMOCEPHALIC - Eye Exam Eye Exam: EOMI, Normal appearance, PERRL Pupil Exam: NORMAL ACCOMODATION, PERRL - ENT Exam ENT Exam: Mucous Membranes Moist, Normal Exam - Neck Exam Neck Exam: Full ROM, Normal Inspection. absent: Lymphadenopathy - Respiratory Exam Respiratory Exam: Clear to Ausculation Bilateral, NORMAL BREATHING PATTERN - Cardiovascular Exam Cardiovascular Exam: REGULAR RHYTHM, +S1, +S2. absent: Murmur - GI/Abdominal Exam GI & Abdominal Exam: Soft, Normal Bowel Sounds. absent: Tenderness - Extremities Exam Extremities Exam: Full ROM, Normal Capillary Refill, Normal Inspection. absent : Joint Swelling, Pedal Edema - Back Exam Back Exam: NORMAL INSPECTION - Neurological Exam Neurological Exam: Alert, Awake, CN II-XII Intact, Normal Gait, Oriented x3 - Psychiatric Exam Psychiatric exam: Normal Affect, Normal Mood - Skin Skin Exam: Dry, Intact, Normal Color, Warm Assessment and Plan (1) Atrial fibrillation with rapid ventricular response Assessment & Plan: spontaneously converted to NSR stress test normal xarelto bb Status: Acute (2) HTN (hypertension) Assessment & Plan: hctz, lisinopril Status: Chronic (3) Cough Status: Acute
== END 2018-03-13 18:50 | disposition home or self-care (01) | DRG 139 ==
LOC: H.ER 19:37 → H.ERHOLD 22:10 → H.TEL 03-11 00:11
PROVIDERS: ADMIT Internal Medicine; ATTEND Internal Medicine
DX: I48.91 Unspecified atrial fibrillation (principal); I10 Essential (primary) hypertension; I95.9 Hypotension, unspecified; R05 Cough; Z90.49 Acquired absence of other specified parts of digestive tract

== ENCOUNTER 2018-08-16 23:37 | Inpatient (IN) | payer MEDICAID ==
[2018-08-16 23:37] VITALS: BMI 28.3
--- NOTE | 2018-08-17 00:26 | ED PDOC ---
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 Patient states her blood pressure was high and felt nauseous but denies any fever, chills, vomiting or other medical complaints. She is currently on Xarelto and Metropolol. Daughter at bedside report she was seen here in March for the same problem and at that time, the a fib broke on its own and pt rhythm went back into sinus. PMD: Yao Leong Past Medical History Reviewed: Historical Data, Nursing Documentation, Vital Signs Vital Signs: Last Vital Signs Temp 98.1 F 08/16/18 23:53 Pulse 124 H 08/16/18 23:53 Resp 18 08/16/18 23:53 BP 146/86 08/16/18 23:53 Pulse Ox 100 08/16/18 23:53 - Medical History PMH: Arthritis, Atrial Fibrillation, HTN Denies: Chronic Kidney Disease - Surgical History Surgical History: Appendectomy - Family History Family History: States: Unknown Family Hx - Social History Current smoker - smoking cessation education provided: No Alcohol: None Drugs: Denies - Home Medications Home Medications: Ambulatory Orders Medication Instructions Recorded RX: Lisinopril/Hydrochlorothiazide 1 tab PO DAILY 03/10/18 [Lisinopril-Hctz 20-25 mg Tab] RX: Metoprolol Succinate XL 25 mg PO DAILY #30 tab 03/13/18 [Toprol XL] RX: Rivaroxaban [Xarelto] 20 mg PO QD5 #30 tab 03/13/18 - Allergies Allergies/Adverse Reactions: Allergies Allergy/AdvReac Type Severity Reaction Status Date / Time No Known Allergies Allergy Verified 12/11/15 12:17 CIRILO Risk Score for UA/NSTEMI - CIRILO Risk Score Age > 64: NO 3 or more CAD Risk Factors: NO Known CAD (Stenosis greater than 50%): NO Aspirin use in past 7 days: YES Severe Angina: NO EKG ST changes greater than 0.5mm: NO Positive Cardiac Marker: NO CIRILO Score: 1 Risk %: 5% Review of Systems ROS Statement: Except As Marked, All Systems Reviewed And Found Negative Constitutional: Negative for: Fever, Chills Cardiovascular: Positive for: Chest Pain Gastrointestinal: Positive for: Nausea. Negative for: Vomiting Musculoskeletal: Positive for: Back Pain Physical Exam - Reviewed Nursing Documentation Reviewed: Yes Vital Signs Reviewed: Yes - Physical Exam Appears: Positive for: No Acute Distress Head Exam: Positive for: ATRAUMATIC, NORMAL INSPECTION, NORMOCEPHALIC Skin: Positive for: Normal Color, Warm, Dry Eye Exam: Positive for: Normal appearance, EOMI, PERRL ENT: Positive for: Normal ENT Inspection Neck: Positive for: Normal, Painless ROM Cardiovascular/Chest: Positive for: Regular Rate, Rhythm. Negative for: Murmur Respiratory: Positive for: Normal Breath Sounds. Negative for: Respiratory Distress Gastrointestinal/Abdominal: Positive for: Normal Exam, Soft. Negative for: Tenderness, Guarding, Rebound Back: Positive for: Normal Inspection. Negative for: L CVA Tenderness, R CVA Tenderness, Vertebral Tenderness Extremity: Positive for: Normal ROM (upper and lower extremities), Swelling (slight trace edema in bilateral lower extremities). Negative for: Deformity Neurologic/Psych: Positive for: Alert, Oriented. Negative for: Motor/Sensory Deficits - Laboratory Results Result Diagrams: 08/19/18 05:05 08/19/18 05:05 - ECG O2 Sat by Pulse Oximetry: 100 (RA) Pulse Ox Interpretation: Normal Medical Decision Making Medical Decision Making: Time: 23:56 Initial Impression: Chest pain and back pain, pt in a fib (history of a fib in the past), rule out malignant arrythmia, rule out CAD. Initial Plan: --CMP --Troponin I --CBC w/ differential --Chest two views (PA/LAT) [RAD] --Urine culture --Urinalysis --Reevaluation EKG: A-fib wit RVR @ 127bpm. 00:40 cardizem given to control rate 04:15 Repeat EKG showed controlled A-fib. 05:[address] Leong, patient will be admitted to him. pt been seen by Dr Mascorro cardiology in March, so will reorder consult from him. -- --- Scribe Attestation: Documented by Regulo Salcido, acting as a scribe for Jorden Coronel MD. Provider Scribe Attestation: All medical record entries made by the Scribe were at my direction and personally dictated by me. I have reviewed the chart and agree that the record accurately reflects my personal performance of the history, physical exam, medical decision making, and the department course for this patient. I have also personally directed, reviewed, and agree with the discharge instructions and disposition. Disposition - Clinical Impression Clinical Impression: Chest pain, Atrial fibrillation with rapid ventricular response - Patient ED Disposition Is Patient to be Admitted: Yes - Disposition Disposition Time: 05:00 Condition: STABLE
[2018-08-17 00:35] LABS: BASO # 0.1 K/uL (0.0-0.2); BASO % 0.7 % (0.0-2.0); EOS # 0.5 K/uL (0.0-0.7); EOS % 5.8 % (0.0-4.0); HEMOGLOBIN 13.2 g/dL (12.0-16.0); LYMPH # 1.8 K/uL (1.0-4.3); LYMPH % 21.6 % (20.0-40.0); MEAN CELL VOLUME 88.6 fl (81.0-99.0); MEAN CORPUSCULAR HEMOGLOBIN 28.3 pg (27.0-31.0); MEAN PLATELET VOLUME 10.2 fl (7.2-11.7); MONO # 0.7 K/uL (0.0-0.8); MONO % 8.6 % (0.0-10.0); NEUT # 5.4 K/uL (1.8-7.0); NEUT % 63.3 % (50.0-75.0); RBC 4.67 Mil/uL (3.80-5.20); RED CELL DISTRIBUTION WIDTH 13.6 % (11.5-14.5); WHITE BLOOD COUNT 8.5 K/uL (4.8-10.8)
[2018-08-17 00:46] LABS: ALB/GLOB RATIO 1.2 (1.0-2.1); ALBUMIN 4.5 g/dL (3.5-5.0); ALT/SGPT 31 U/L (9-52); AST/SGOT 26 U/L (14-36); BLOOD UREA NITROGEN 15 mg/dl (7-17); CALCIUM 9.6 mg/dL (8.4-10.2); GFR NON-AFRICAN AMERICAN 57
--- NOTE | 2018-08-17 08:59 | RAD ---
Date of service: 08/17/2018 HISTORY: chest pain COMPARISON: Frontal chest radiograph 03/10/2018. TECHNIQUE: Chest PA and lateral FINDINGS: LUNGS: No active pulmonary disease. PLEURA: No significant pleural effusion identified. No pneumothorax apparent. CARDIOVASCULAR: Calcific atherosclerotic changes are seen related to the thoracic aorta. Normal cardiac size. No pulmonary vascular congestion. OSSEOUS STRUCTURES: No significant abnormalities. VISUALIZED UPPER ABDOMEN: Surgical clips reiterated right upper quadrant abdomen. OTHER FINDINGS: None. IMPRESSION: No interval acute cardiopulmonary disease appreciated.
[2018-08-17] MEDS: Metoprolol Succinate 25 mg XL Tab PO SCH (11:11)
--- NOTE | 2018-08-17 11:21 | US ---
Date of service: 08/17/2018 PROCEDURE: Right lower extremity venous duplex Doppler. HISTORY: leg swelling COMPARISON: None available. TECHNIQUE: Common femoral, superficial femoral, popliteal and posterior tibial veins were evaluated. Flow was assessed with color Doppler, compressibility, assessment of phasic flow and augmentation response. FINDINGS: COMMON FEMORAL VEIN: Unremarkable. SUPERFICIAL FEMORAL VEIN: Unremarkable. POPLITEAL VEIN: Unremarkable. POSTERIOR TIBIAL VEIN: Unremarkable. OTHER FINDINGS: Calf swelling right lower extremity. IMPRESSION: No evidence of deep venous thrombosis in the right lower extremity.
[2018-08-17 16:53] LABS: SQUAMOUS EPITHIAL 1 /hpf (0-5); URINE BACTERIA RARE (<OCC); URINE BILIRUBIN NEGATIVE (NEGATIVE); URINE BLOOD MODERATE (NEGATIVE); URINE CLARITY SLIGHTY-CLOUDY (Clear); URINE COLOR YELLOW (YELLOW); URINE GLUCOSE (UA) NEG (Normal); URINE LEUKOCYTE ESTERASE NEG Leu/uL (Negative); URINE PROTEIN NEGATIVE (NEGATIVE); URINE UROBILINOGEN 0.2-1.0 mg/dL (0.2-1.0)
--- NOTE | 2018-08-17 19:30 | HP ---
CHIEF COMPLAINT: Palpitation and chest pain. HISTORY OF PRESENT ILLNESS: This is a female known case of atrial fibrillation and hypertension, very compliant with her medications, was feeling okay and then suddenly started having chest pain and palpitation, so the patient was brought to emergency room and was admitted for further management. REVIEW OF SYSTEMS: Positive for chest pain and palpitation. Review of systems is otherwise negative for headache, dizziness, syncope, loss of consciousness, shortness of breath, nausea, vomiting, diarrhea, constipation, any new joint or extremity pain. Review of systems of all other organ system is unremarkable. PAST MEDICAL HISTORY: Significant for atrial fibrillation and hypertension. PAST SURGICAL HISTORY: Unremarkable. PERSONAL HISTORY: The patient is currently nonsmoker, nondrinker. No substance abuse. MEDICATIONS: The patient is on multiple medications, which is as per reconciliation sheet, which was reviewed and ordered. ALLERGIES: THE PATIENT IS NOT ALLERGIC TO ANY MEDICATIONS. FAMILY HISTORY: Noncontributory. PHYSICAL EXAMINATION: GENERAL: The patient is a well-built, well-nourished, female in no acute distress. VITAL SIGNS: Stable. Temperature afebrile, pulse 80, respirations 18, blood pressure 156/76. HEENT: Pupils reacting to light. No JVD. No thyromegaly. No lymphadenopathy. No nystagmus. Normocephalic, atraumatic skull. HEART: S1 and S2, normal and regular. No significant murmur, gallop, or rub is heard. The patient is irregularly irregular and is slightly tachycardic. LUNGS: Good bilateral air exchange. No rales or rhonchi. ABDOMEN: Soft and nontender. No organomegaly. No fluid. Bowel sounds are plus and normal. EXTREMITIES: No edema. No calf swelling. No tenderness. No acute ischemia. CENTRAL NERVOUS SYSTEM: The patient is alert, awake, and oriented x3. There is no sign of any acute gross focal motor or sensory neurological deficits. DIAGNOSTIC DATA: Available diagnostic data reviewed. EKG showed atrial fibrillation with rapid ventricular rate. Telemetry also confirms AFib with rapid ventricular rate . IMPRESSION: 1. Atrial fibrillation with rapid ventricular rate. 2. Hypertension. PLAN: As ordered. Case and plan discussed with the patient. Yao Leong MD [facility] # [id number]
[2018-08-18] MEDS ORDERED: Pneumococcal 23-Valent Vaccine IM ONE ×2 (03:40→12:00)
[2018-08-18] MEDS ORDERED: Influenza Vaccine (5 YR UP)/PF 60 MCG/0.5 ML SYR IM ONE (06:00)
[2018-08-18] MEDS ORDERED: Metoprolol Succinate 25 mg XL Tab PO SCH (09:00)
[2018-08-18] MEDS: Metoprolol Succinate 25 mg XL Tab PO SCH (09:27)
--- NOTE | 2018-08-18 12:52 | PN ---
DATE: 08/18/2018 SUBJECTIVE: The patient seen and examined. Interim events noted. Cardiology consult is pending. The patient remains in progressive care unit, on telemetry monitoring. The patient is sleeping, arousable, feels okay. Denies any chest pain, shortness of breath or palpitation. PHYSICAL EXAMINATION: GENERAL: The patient is in no acute distress. VITAL SIGNS: Stable. HEART: S1 and S2, normal and regular. LUNGS: Good bilateral air exchange. ABDOMEN: Soft, nontender. EXTREMITIES: No edema. No calf swelling. No tenderness. No acute ischemia. CENTRAL NERVOUS SYSTEM: Essentially unchanged. DIAGNOSTIC DATA: Available diagnostic data reviewed. Telemetry monitoring revealed occasional atrial fibrillations with rapid ventricular rate. At present, rate is controlled. ASSESSMENT AND PLAN: Plan as ordered. Case and plan discussed with patient. Yao Leong MD
[2018-08-19 05:43] LABS: HEMOGLOBIN 14.2 g/dL (12.0-16.0); MEAN CELL VOLUME 88.1 fl (81.0-99.0); MEAN CORPUSCULAR HEMOGLOBIN 28.6 pg (27.0-31.0); MEAN CORPUSCULAR HGB CONC 32.5 g/dL (33.0-37.0); RBC 4.96 Mil/uL (3.80-5.20); RED CELL DISTRIBUTION WIDTH 13.4 % (11.5-14.5); WHITE BLOOD COUNT 6.9 K/uL (4.8-10.8)
[2018-08-19 06:14] LABS: ALB/GLOB RATIO 1.2 (1.0-2.1); ALBUMIN 4.3 g/dL (3.5-5.0); ALT/SGPT 26 U/L (9-52); AST/SGOT 23 U/L (14-36); BLOOD UREA NITROGEN 20 mg/dl (7-17); CALCIUM 9.8 mg/dL (8.4-10.2); GFR NON-AFRICAN AMERICAN 51
--- NOTE | 2018-08-19 09:19 | PN ---
DATE: 08/19/2018 SUBJECTIVE: The patient is seen and examined. Interim events noted. Cardiology evaluation is done, but consult report is pending. The patient feels okay. No chest pain, shortness of breath, or palpitation. PHYSICAL EXAMINATION: GENERAL: The patient is in no acute distress. VITAL SIGNS: Stable. HEART: S1 and S2, normal and regular. LUNGS: Good bilateral air exchange. ABDOMEN: Soft, nontender. EXTREMITIES: No edema. No calf swelling. No tenderness. No acute ischemia. CENTRAL NERVOUS SYSTEM: Essentially unchanged. DIAGNOSTIC DATA: Available diagnostic data reviewed. Telemetry monitoring showed episodes of atrial fibrillation . ASSESSMENT AND PLAN: Plan as ordered. Yao Leong MD
[2018-08-19] MEDS: Metoprolol Succinate 25 mg XL Tab PO SCH (09:24)
--- NOTE | 2018-08-19 15:37 | CP.PCM.CON ---
History of Present Illness - History of Present Illness History of Present Illness: Consultation for evaluation of afib w/RVR HPI: 57 year old female who presented to [facility] with c/o chest pains and palpitations. Was found to be in afib w/ RVR controlled with IV cardizem. Stress test done in 03/23 submaximal 2' to HR reaching only 71% of maximal predicted heart rate. Review of Systems - Review of Systems Systems not reviewed;Unavailable: Acuity of Condition - Constitutional Constitutional: As Per HPI - EENT Eyes: As Per HPI Ears: As Per HPI - Breasts Breasts: As Per HPI - Cardiovascular Cardiovascular: As Per HPI - Respiratory Respiratory: As Per HPI - Gastrointestinal Gastrointestinal: As Per HPI - Genitourinary Genitourinary: As Per HPI - Reproductive: Female Reproductive:Female: As Per HPI - Menstruation Menstruation: As Per HPI - Musculoskeletal Musculoskeletal: As Per HPI - Integumentary Integumentary: As Per HPI - Neurological Neurological: As Per HPI - Psychiatric Psychiatric: As Per HPI - Endocrine Endocrine: As Per HPI Past Patient History - Past Medical History & Family History Past Medical History?: Yes - Past Social History Alcohol: None Drugs: Denies - CARDIAC Hx Atrial Fibrillation: Yes Hx Hypertension: Yes - PULMONARY Hx Respiratory Disorders: No - NEUROLOGICAL Hx Neurological Disorder: Yes Hx Vertigo: Yes - HEENT Hx HEENT Problems: No - RENAL Hx Chronic Kidney Disease: No - ENDOCRINE/METABOLIC Hx Endocrine Disorders: No - HEMATOLOGICAL/ONCOLOGICAL Hx AIDS: No Hx Human Immunodeficiency Virus (HIV): No - INTEGUMENTARY Hx Dermatological Problems: No - MUSCULOSKELETAL/RHEUMATOLOGICAL Hx Arthritis: Yes - GASTROINTESTINAL Hx Gastrointestinal Disorders: No - GENITOURINARY/GYNECOLOGICAL Hx Genitourinary Disorders: No - PSYCHIATRIC Hx Substance Use: No - SURGICAL HISTORY Hx Appendectomy: Yes - ANESTHESIA Hx Anesthesia: Yes Hx Anesthesia Reactions: No Hx Malignant Hyperthermia: No Has any member of the family had a problem w/ anesthesia?: No Meds Allergies/Adverse Reactions: Allergies Allergy/AdvReac Type Severity Reaction Status Date / Time No Known Allergies Allergy Verified 12/11/15 12:17 - Medications Medications: Current Medications Hydrochlorothiazide (Hydrodiuril) 25 mg PO DAILY [facility] Last Admin: 08/19/18 09:23 Dose: 25 mg Lisinopril (Zestril) 20 mg PO DAILY [facility] Last Admin: 08/19/18 09:24 Dose: 20 mg Metoprolol Succinate (Toprol Xl) 25 mg PO DAILY [facility] Last Admin: 08/19/18 09:24 Dose: 25 mg Rivaroxaban (Xarelto) 20 mg PO DAILY [facility]; Protocol Last Admin: 08/19/18 09:24 Dose: 20 mg Physical Exam - Constitutional Appears: Well - Head Exam Head Exam: ATRAUMATIC, NORMAL INSPECTION, NORMOCEPHALIC - Eye Exam Eye Exam: EOMI, Normal appearance, PERRL Pupil Exam: NORMAL ACCOMODATION, PERRL - ENT Exam ENT Exam: Mucous Membranes Moist, Normal Exam - Neck Exam Neck exam: Positive for: Normal Inspection - Respiratory Exam Respiratory Exam: Clear to Auscultation Bilateral, NORMAL BREATHING PATTERN - Cardiovascular Exam Cardiovascular Exam: REGULAR RHYTHM - GI/Abdominal Exam GI & Abdominal Exam: Normal Bowel Sounds, Soft. absent: Tenderness - Extremities Exam Extremities exam: Positive for: normal inspection - Back Exam Back exam: NORMAL INSPECTION - Neurological Exam Neurological exam: Alert, CN II-XII Intact, Normal Gait, Oriented x3, Reflexes Normal - Psychiatric Exam Psychiatric exam: Normal Affect, Normal Mood - Skin Skin Exam: Dry, Intact, Normal Color, Warm Results - Vital Signs Recent Vital Signs: Last Vital Signs Temp 98.1 F 08/19/18 12:01 Pulse 75 08/19/18 12:01 Resp 20 08/19/18 12:01 BP 114/78 08/19/18 12:01 Pulse Ox 94 L 08/19/18 12:01 - Labs Result Diagrams: 08/19/18 05:05 08/19/18 05:05 Labs: Laboratory Results - last 24 hr 08/18/18 08/19/18 08/19/18 16:18 05:05 05:05 WBC 6.9 RBC 4.96 Hgb 14.2 Hct 43.7 MCV 88.1 MCH 28.6 MCHC 32.5 L RDW 13.4 Plt Count 204 Sodium 138 Potassium 3.8 Chloride 102 Carbon Dioxide 28 Anion Gap 12 BUN 20 H Creatinine 1.1 Est GFR ( Amer) > 60 Est GFR (Non-Af Amer) 51 Random Glucose 116 H Calcium 9.8 Total Bilirubin 0.5 AST 23 ALT 26 Alkaline Phosphatase 108 Troponin I < 0.0120 Total Protein 7.9 Albumin 4.3 Globulin 3.6 Albumin/Globulin Ratio 1.2 Assessment & Plan (1) Atrial fibrillation with rapid ventricular response Assessment and Plan: cont bb NOAC xarelto stress test reviewed in 03/23 acs ruled out Status: Acute (2) Chest pain Assessment and Plan: sx both typical and atypical Status: Acute (3) Cough Status: Acute (4) HTN (hypertension) Status: Chronic
--- NOTE | 2018-08-19 15:43 | CP.PCM.PN ---
Subjective - Date & Time of Evaluation Date of Evaluation: 08/20/18 Time of Evaluation: 15:42 - Subjective Subjective: c/o intermittent CP pressure like in sensation telemetry reviewed - NSR Objective - Vital Signs/Intake and Output Vital Signs (last 24 hours): Temp Pulse Resp BP Pulse Ox 98.1 F 75 20 114/78 94 L 08/19/18 12:01 08/19/18 12:01 08/19/18 12:01 08/19/18 12:01 08/19/18 12:01 - Medications Medications: Current Medications Hydrochlorothiazide (Hydrodiuril) 25 mg PO DAILY [facility] Last Admin: 08/19/18 09:23 Dose: 25 mg Lisinopril (Zestril) 20 mg PO DAILY [facility] Last Admin: 08/19/18 09:24 Dose: 20 mg Metoprolol Succinate (Toprol Xl) 25 mg PO DAILY [facility] Last Admin: 08/19/18 09:24 Dose: 25 mg Rivaroxaban (Xarelto) 20 mg PO DAILY [facility]; Protocol Last Admin: 08/19/18 09:24 Dose: 20 mg - Labs Labs: 08/19/18 05:05 08/19/18 05:05 - Constitutional Appears: Well - Head Exam Head Exam: ATRAUMATIC, NORMAL INSPECTION, NORMOCEPHALIC - Eye Exam Eye Exam: EOMI, Normal appearance, PERRL Pupil Exam: NORMAL ACCOMODATION, PERRL - ENT Exam ENT Exam: Mucous Membranes Moist, Normal Exam - Neck Exam Neck Exam: Full ROM, Normal Inspection. absent: Lymphadenopathy - Respiratory Exam Respiratory Exam: Clear to Ausculation Bilateral, NORMAL BREATHING PATTERN - Cardiovascular Exam Cardiovascular Exam: REGULAR RHYTHM, +S1, +S2. absent: Murmur - GI/Abdominal Exam GI & Abdominal Exam: Soft, Normal Bowel Sounds. absent: Tenderness - Extremities Exam Extremities Exam: Full ROM, Normal Capillary Refill, Normal Inspection. absent: Joint Swelling, Pedal Edema - Back Exam Back Exam: NORMAL INSPECTION - Neurological Exam Neurological Exam: Alert, Awake, CN II-XII Intact, Normal Gait, Oriented x3 - Psychiatric Exam Psychiatric exam: Normal Affect, Normal Mood - Skin Skin Exam: Dry, Intact, Normal Color, Warm Assessment and Plan (1) Atrial fibrillation with rapid ventricular response Assessment & Plan: in NSR on telemetry cont bb hold xarelto today Status: Acute (2) Chest pain Assessment & Plan: recurrent typical CP stress test inconclusive plan for cath in am Status: Acute (3) Cough Status: Acute (4) HTN (hypertension) Status: Chronic
--- NOTE | 2018-08-20 08:12 | CP.PCM.PN ---
<MontoyaGermán - Last Filed: 08/20/18 08:10> Subjective - Date & Time of Evaluation Date of Evaluation: 08/20/18 Time of Evaluation: 07:10 - Subjective Subjective: 57 y/o F was seen and examined by bedside with Dr Leong, pt reports feeling OK, denies chest pain or SOB at this moment. Pt afebrile, tolerating PO with No acute events overnight. Objective - Vital Signs/Intake and Output Vital Signs (last 24 hours): Temp Pulse Resp BP Pulse Ox 98 F 66 18 114/79 97 08/20/18 07:58 08/20/18 07:58 08/20/18 07:58 08/20/18 07:58 08/20/18 07:58 - Medications Medications: Current Medications Hydrochlorothiazide (Hydrodiuril) 25 mg PO DAILY [facility] Last Admin: 08/19/18 09:23 Dose: 25 mg Lisinopril (Zestril) 20 mg PO DAILY [facility] Last Admin: 08/19/18 09:24 Dose: 20 mg Metoprolol Succinate (Toprol Xl) 25 mg PO DAILY [facility] Last Admin: 08/19/18 09:24 Dose: 25 mg Rivaroxaban (Xarelto) 20 mg PO DAILY [facility]; Protocol Last Admin: 08/19/18 09:24 Dose: 20 mg - Labs Labs: 08/19/18 05:05 08/19/18 05:05 - Constitutional Appears: Well, No Acute Distress - Head Exam Head Exam: NORMAL INSPECTION - Eye Exam Eye Exam: EOMI, Normal appearance - ENT Exam ENT Exam: Mucous Membranes Moist - Neck Exam Neck Exam: Full ROM. absent: Meningismus - Respiratory Exam Respiratory Exam: NORMAL BREATHING PATTERN. absent: Rales, Rhonchi, Wheezes - Cardiovascular Exam Cardiovascular Exam: +S1, +S2 - GI/Abdominal Exam GI & Abdominal Exam: Soft, Tenderness. absent: Distended, Guarding, Rigid - Extremities Exam Extremities Exam: Full ROM, Normal Inspection. absent: Calf Tenderness - Neurological Exam Neurological Exam: Alert, Awake, Oriented x3 Assessment and Plan - Assessment and Plan (Free Text) Assessment: 57 y/o F with a PMHx of HTN was admitted for evaluation and management of atrial fibrillation with RVR. PLAN: --Afebrile, no acute events overnight --For cardiac catheterization this morning. --Cardiology on board, Dr Mascorro --Continue management as ordered. Case discussed with Dr Dang Messina PGY-2 <Yao Leong - Last Filed: 08/20/18 19:55> Objective - Vital Signs/Intake and Output Vital Signs (last 24 hours): Temp Pulse Resp BP Pulse Ox 98 F 66 18 114/79 97 08/20/18 07:58 08/20/18 09:00 08/20/18 07:58 08/20/18 07:58 08/20/18 07:58 - Labs Labs: 08/19/18 05:05 08/19/18 05:05 Assessment and Plan - Assessment and Plan (Free Text) Assessment: Patient was personally seen and examined by me in rounds with residents. Available labs and diagnostic data reviewed. Case, Patient's condition and management plan discussed with residents in rounds. Agree with resident's progress note. Plan: As ordered.
[2018-08-20] MEDS: Metoprolol Succinate 25 mg XL Tab PO SCH (08:39)
--- NOTE | 2018-08-20 18:54 | CP.PCM.HP ---
<Tara Sood - Last Filed: 08/20/18 19:06> History of Present Illness - History of Present Illness History of Present Illness: Patient is currently s/p cardiac cath in [facility]. She was unable to be transferred back to [place] where she was this morning due to inclement weather. Patient is admitted for obs overnight. Patient currently denies chest pain, SOB, and palpitations. She is hemodynamically stable. She was at [facility] and had Afib w/ RVR. Cardiology was consulted and was brought to [facility] for cath. Continue with medications previously prescribed: lisinopril/HCTZ 20/25, metoprolol succinate 25mg, and xarelto 20 mg all once daily. Also add atorvastatin 20mg hs. case d/w Dr. Chrissy Sood DO PGY1 Present on Admission - Present on Admission Any Indicators Present on Admission: Yes Past Patient History - Past Medical History & Family History Past Medical History?: Yes - Past Social History Alcohol: None Drugs: Denies - CARDIAC Hx Atrial Fibrillation: Yes Hx Hypertension: Yes - PULMONARY Hx Respiratory Disorders: No - NEUROLOGICAL Hx Neurological Disorder: Yes Hx Vertigo: Yes - HEENT Hx HEENT Problems: No - RENAL Hx Chronic Kidney Disease: No - ENDOCRINE/METABOLIC Hx Endocrine Disorders: No - HEMATOLOGICAL/ONCOLOGICAL Hx AIDS: No Hx Human Immunodeficiency Virus (HIV): No - INTEGUMENTARY Hx Dermatological Problems: No - MUSCULOSKELETAL/RHEUMATOLOGICAL Hx Arthritis: Yes - GASTROINTESTINAL Hx Gastrointestinal Disorders: No - GENITOURINARY/GYNECOLOGICAL Hx Genitourinary Disorders: No - PSYCHIATRIC Hx Substance Use: No - SURGICAL HISTORY Hx Appendectomy: Yes - ANESTHESIA Hx Anesthesia: Yes Hx Anesthesia Reactions: No Hx Malignant Hyperthermia: No Has any member of the family had a problem w/ anesthesia?: No Meds Allergies/Adverse Reactions: Allergies Allergy/AdvReac Type Severity Reaction Status Date / Time No Known Allergies Allergy Verified 12/11/15 12:17 Results - Vital Signs Recent Vital Signs: Last Vital Signs Temp 98 F 08/20/18 07:58 Pulse 66 08/20/18 09:00 Resp 18 08/20/18 07:58 BP 114/79 08/20/18 07:58 Pulse Ox 97 08/20/18 07:58 - Labs Result Diagrams: 08/19/18 05:05 08/19/18 05:05 <Андрей Lowe - Last Filed: 08/20/18 19:48> Results - Vital Signs Recent Vital Signs: Last Vital Signs Temp 98 F 08/20/18 07:58 Pulse 66 08/20/18 09:00 Resp 18 08/20/18 07:58 BP 114/79 08/20/18 07:58 Pulse Ox 97 08/20/18 07:58 - Labs Result Diagrams: 08/19/18 05:05 08/19/18 05:05 Attending/Attestation - Attestation I have personally seen and examined this patient.: Yes I have fully participated in the care of the patient.: Yes I have reviewed all pertinent clinical information: Yes Notes (Text): 08/20/18 19:44 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 She is ambulating and doing well. She denied chest pain, denied shortness of breath, she was comming from [facility] to have cardiac catherization. She intially presented to [facility] with chest pain and rapid atrial fibrillation. Currently no palpitations. She needs to continue with her medication as well as anticoaguation. Hopefully tommorow once the snow stops she can be moved back to [facility] Андрей Lowe
[2018-08-21] MEDS: Metoprolol Succinate 25 mg XL Tab PO SCH (22:05)
[2018-08-22 08:02] VITALS: BP 112/75; PULSE 67; TEMP 98.2
[2018-08-22] MEDS: Metoprolol Succinate 25 mg XL Tab PO SCH (08:43)
[2018-08-22 10:04] VITALS: RESP 15; O2SAT 100
--- NOTE | 2018-08-22 13:35 | PN ---
DATE: 08/22/2018 SUBJECTIVE: The patient seen and examined. Interim events noted. The patient remains in progressive care unit on telemetry monitoring. Feels okay. Denies any chest pain, shortness of breath, or palpitation. The patient is status post cardiac cath, essentially unremarkable except coronary vasospasm. PHYSICAL EXAMINATION: GENERAL The patient is in no acute distress. VITAL SIGNS: Stable. HEART: S1 and S2, normal and regular. LUNGS: Good bilateral air exchange. ABDOMEN: Soft, nontender. EXTREMITIES: No edema. No calf swelling or tenderness. No acute ischemia. CENTRAL NERVOUS SYSTEM: Exam is essentially unchanged. DIAGNOSTIC DATA: Available diagnostic data reviewed. ASSESSMENT AND PLAN: Overall, the patient is medically stable. Telemetry monitoring does not show significant arrhythmias . Plan as ordered. Yao Leong MD
--- NOTE | 2018-08-31 09:45 | PQF ---
PROVIDER RESPONSE TEXT: Permanent REVIEWER QUERY TEXT: Atrial Fibrillation Type Atrial fibrillation is documented in the Medical Record. Please specify the type Such as: -- Chronic -- Paroxysmal -- Permanent -- Persistent -- Other, please specify H and P: PMH: Significant for atrial fibrillation and hypertension. Impression: 1.Atrial fibrillation with rapid ventricular rate. 2. Hypertension. 08/18 Cardio consult: Assessment :(1) Atrial fibrillation with rapid ventricular response Assessment and Plan: cont bb NOAC xarelto stress test reviewed in 03/23 acs ruled out Status: Acute --IV Cardizem The patient's Clinical Indicators include: - Query created by: Stella Bauer on 08/24/2018 11:16 AM Electronically signed by: Yao Leong 08/31/2018 9:42 AM
== END 2018-08-22 11:11 | disposition home or self-care (01) | DRG 125 ==
LOC: H.ER 23:37 → H.ERHOLD 08-17 03:51 → H.TEL 08-18 02:28 → OBSVTOIN 08-20 06:08 → INTOOBSV 08-20 06:08 → UNDODISOB 08-20 09:15 → OBSVTOIN 08-21 19:49
PROVIDERS: ADMIT Internal Medicine; ATTEND Internal Medicine
PROC: 4A023N7 Measurement of Cardiac Sampling and Pressure, Left Heart, Percutaneous Approach (ICD-10-PCS; 2018-08-20)
PROC: B206YZZ Plain Radiography of Right and Left Heart using Other Contrast (ICD-10-PCS; 2018-08-20)
PROC: 3E02340 Introduction of Influenza Vaccine into Muscle, Percutaneous Approach (ICD-10-PCS; principal; 2018-08-21)
DX: I48.2 Chronic atrial fibrillation (principal); I25.111 Atherosclerotic heart disease of native coronary artery with angina pectoris with documented spasm; I10 Essential (primary) hypertension; Z79.01 Long term (current) use of anticoagulants; Z23 Encounter for immunization; M19.90 Unspecified osteoarthritis, unspecified site